=== PATIENT | male | born 1945 | race Caucasian/White ===

== ENCOUNTER → 2016-07-23 | Outpatient (CLI) | payer OTHER | PROVIDERS: ATTEND Physician Assistant | DX: R13.10 Dysphagia, unspecified (principal) | CPT/HCPCS: 74230; 92611; G8996; G8997; G8998 ==

== ENCOUNTER 2018-05-06 12:17 | Observation (INO) | payer OTHER ==
[2018-05-06] MEDS ORDERED: ACETAMINOPHEN 325 MG TAB PO PRN (14:30)
[2018-05-06] MEDS ORDERED: ZOLPIDEM TARTRATE 5 MG TAB PO PRN (19:52)
[2018-05-06 20:03] LABS: PLATELET COUNT 145 10^3/uL (150-400)
--- NOTE | 2018-05-06 20:18 | GHP ---
[f rep st] HISTORY AND PHYSICAL DATE OF ADMISSION: 05/06/2018 CHIEF COMPLAINT: Dyspnea on exertion. HISTORY OF PRESENT ILLNESS: This is a 72-year-old male, who is followed by Dr. Rosen due to bradycardia and 1st degree AV block. About a month ago, he noticed that he was having irregular heart beats while working out. At that time, he felt like he almost was going to pass out. Over the past 4 weeks, he has had increased episodes of palpitations. Then over the past 3 days, he has noticed some dyspnea on exertion. He denies any chest pain. He denies any swelling of his legs. He denies any orthopnea. PAST MEDICAL HISTORY: CABG in 2016, melanoma excision in 2003, A retinal tear, cataract surgery, TURP for BPH, left biceps tendon repair. HOME MEDICATIONS: Lipitor, zolpidem, aspirin, and Maxzide. ALLERGIES: Penicillin. SOCIAL HISTORY: Lives in [place] with his . He is a former smoker. He denies any alcohol use. He denies any illicit drug use. FAMILY HISTORY: Significant for heart disease in his father, brother, and grandparents. REVIEW OF SYSTEMS: Comprehensive 10-point review of systems was done and is negative, except for as mentioned in HPI. PHYSICAL EXAM: VITAL SIGNS: Blood pressure 146/87, pulse 63, respiratory rate 16, O2 saturation 97% on room air. Temperature 36.8. GENERAL: No acute distress. HEAD: Normocephalic, atraumatic. EYES: PERRLA. Sclerae anicteric. MOUTH: Moist mucous membranes. NECK: Supple. No lymphadenopathy. CARDIOVASCULAR: Bradycardic, S1-S2, no JVD. No lower extremity edema. PULMONARY: Lungs are clear. No wheezes, rales, or rhonchi. ABDOMEN: Soft, nontender, nondistended. No guarding or rebound tenderness. Normoactive bowel sounds. EXTREMITIES: No clubbing or cyanosis. NEURO: Cranial nerves 2-12 grossly intact. No focal motor or sensory deficits. SKIN: Clear. No rashes. DIAGNOSTICS: Troponin was 0.015. TSH within normal limits. Sodium 138, potassium 4.1, chloride 102, CO2 27, BUN 31, creatinine 1.1, glucose 102. WBC 7.1, hemoglobin 16.9, hematocrit 49.9, platelets 145. EKG that was done in the ER, per report, showed a third-degree AV block. Currently in a junctional rhythm on the ekg monitor. ASSESSMENT AND PLAN: Symptomatic bradycardia PLAN: The patient will be placed on observation in the PCU. Cardiology has been consulted and will see the patient. We will obtain an echocardiogram and continue to monitor on telemetry. I suspect the patient will likely need pacemaker placement due to his symptomatic bradycardia. The patient requests to be full code status. /[id number]/MODL MTDD
[2018-05-06] MEDS ORDERED: ATORVASTATIN CALCIUM 10 MG TAB PO SCH (21:00)
[2018-05-06] MEDS ORDERED: ASPIRIN 81 MG CHEWABLE TAB PO SCH (21:00)
--- NOTE | 2018-05-07 08:49 | CPEKG ---
Test Reason : OPEN Blood Pressure : / mmHG Vent. Rate : 074 BPM Atrial Rate : 074 BPM P-R Int : 454 ms QRS Dur : 082 ms QT Int : 359 ms P-R-T Axes : 000 041 073 degrees QTc Int : 399 ms Sinus rhythm Prolonged RI interval Confirmed by Jimbo Rowe ([id number]) on 05/07/2018 8:48:47 AM Referred By: PHYSICIAN ED Confirmed By:Jimbo Rowe
[2018-05-07] MEDS ORDERED: MULTIVITAMINS 1 EACH TAB PO SCH (09:00)
[2018-05-07] MEDS ORDERED: OMEGA-3 FATTY ACIDS 1,000 MG CAP PO SCH (09:00)
[2018-05-07] MEDS ORDERED: PSYLLIUM METAMUCIL 1 PKT PO SCH (09:00)
[2018-05-07] MEDS ORDERED: ASCORBIC ACID 500 MG TAB PO SCH (09:00)
[2018-05-07] MEDS ORDERED: TRIAMTERENE/HCTZ 75/50 1 EACH TAB PO SCH (09:00)
[2018-05-07] MEDS ORDERED: GLUCOSAMINE SULF 500 MG CAP PO SCH (09:00)
[2018-05-07] MEDS ORDERED: Herbals/Supplements -Info Only PO SCH (09:00)
--- NOTE | 2018-05-07 10:16 | PDCARPN ---
Cardiology Progress Note Chief Complaint: 1st and 2nd degree AV block, dyspnea, fatigue, activity intolerance Assessment/Plan: Assessment: 1. 1st and 2nd degree AV block: Progressive dyspnea and activity intolerance over the past 1-2 weeks, somewhat better this morning. Yesterday's 12-lead EKG was reviewed with Dr. Rosen, which likely demonstrates NSR with a prolonged KS interval. Telemetry has been reviewed, which demonstrates junctional rhythm, 1st and slow 2nd degree AV block type I. 2. CAD: s/p CABG in 2016, negative troponin on admission 3. Hyperlipidemia Plan: 1. Outpatient nuclear imaging stress test to rule out ischemic etiology of symptoms. 2. If NucETT is normal, plan for PPM implant next week 3. If NucETT is abnormal, plan for coronary angiography +/- PPM implant 4. OK to DC home today once NucETT is scheduled at [facility] 05/07/18 12:20 Subjective: No issues overnight, dyspnea on exertion improved this morning Reviewed/Discussed With: multidisciplinary team Time Spent with Patient: greater than 25 minutes Time Spent with Patient: Greater than 25 minutes spent on this patients care, greater than 50% of time spent counseling, educating, and coordinating care regarding the above mentioned plan. Objective: Vital Signs (8 Hrs) Temp Pulse Resp BP Pulse Ox 05/07/18 08:00 36.7 C 60 18 128/76 H 92 05/07/18 04:00 36.3 C 44 L 16 128/74 H 97 Intake/Output (24 Hrs) 05/06/18 05/07/18 05/08/18 05:59 05:59 05:59 Intake Total 350 Balance 350 Intake: Oral (ml) 350 Other: Weight 77 kg Number of Voids Toilet 2 Result Diagrams: 05/06/18 12:17 05/07/18 03:30 EK-lead ECG yesterday demonstrates NSR with prolonged KS interval, reviewed with Dr. Rosen - Physical Exam Constitutional: WDWN, healthy appearing, no apparent distress Ears, Nose, Mouth, Throat: moist mucous membranes, no oral ulcers, no thrush Cardiovascular: regular rate and rhythm, no murmurs, no rubs, no gallops Respiratory: clear to auscultate bilat, no crackles, no wheezes Gastrointestinal: normoactive bowel sounds, no tenderness, no masses Neurologic: AAOx3, CN II-XII grossly intact Psychiatric: cooperative, interactive, following commands, not anxious ICD10 Worksheet Patient Problems: Problems Problem Status Onset CAD in [place] artery Acute Heart block AV second degree Acute Pneumonia Acute S/P CABG x 3 Acute Urinary retention with incomplete bladder emptying Acute Frequent PVCs Chronic Wenckebach second degree AV block Chronic
[2018-05-07 11:45] VITALS: BP 110/72
--- NOTE | 2018-05-07 12:46 | PDCONSULT ---
Residential Program Worker Note: Patient was seen in consult yesterday (with the EMR down) and a formal consult was written in the chart. The patient is well known to Dr. Glenny Rosen, and given this relationship, I discussed the patient with Dr. Rosen yesterday. Outpatient, there had been discussions about PPM implantation. With CAD/CABG history, the option for stress testing was brought up (as well as angiography), but, according to the patient, in recent history, an outpatient stress test had been performed (ETT only). Dr. Rosen and team formally saw the patient today, and outpatient Nuclear stress testing was arranged. Outpatient follow up with cardiology after this testing has been completed. I reiterated with the patient and , should there be revisitation of symptoms (or acute progression), would revisit the ER for work up/treatment. They were in agreement with these plans. Nikhil (SANDRO) did see the patient, and wrote a note prior to the completion of this note
--- NOTE | 2018-05-07 12:50 | GDS ---
[f rep st] DISCHARGE SUMMARY SUPERVISING STRUCTURAL STEEL IRONWORKER: Dr. Rell Rosen ADMISSION DIAGNOSES: 1. First- and second-degree atrioventricular block. 2. Coronary artery disease, status post coronary artery bypass graft in 2016. DISCHARGE DIAGNOSES: 1. First- and second-degree atrioventricular block. 2. Coronary artery disease, status post coronary artery bypass graft in 2016. PROCEDURES PERFORMED DURING HOSPITALIZATION: Electrocardiogram. HOSPITAL COURSE: Patient presented 05/06/2018 for further evaluation of progressive dyspnea on exertion and progressive activity intolerance over the previous 2 weeks. Telemetry since his admission has demonstrated 1st-degree AV block with a CA interval measuring roughly 440 msec, consistent with his baseline in addition to slow 2nd-degree AV block, type I, in addition to periods of junctional rhythm. The patient reports significant improvement in his symptoms since his admission. Laboratory studies demonstrated negative troponin and were otherwise unrevealing. He has been ambulating around the unit several times this morning without issue, and he is appropriate and stable for discharge home today. CURRENT PHYSICAL EXAMINATION: GENERAL: Alert and oriented x4, no apparent distress. VITAL SIGNS: Blood pressure 110/72, heart rate 59, respiratory rate 18, SpO2 98% on room air, temp 36.7 degrees Celsius. RESPIRATORY: Lungs are clear to auscultation without adventitious breath sounds. CARDIAC: Normal S1 and S2. No S3, S4, or murmurs. Rhythm is regular. ABDOMEN: Normoactive bowel sounds times all 4 quadrants. No masses or tenderness. Soft to palpation. SKIN: [place], warm, dry without cyanosis, clubbing, or peripheral edema. EXTREMITIES: Pulses 2+ bilaterally. LABORATORY STUDIES: Drawn 05/06/2018 demonstrate normal CBC and normal BMP. BNP is 151. TSH is 1.5. Troponin is 0.015. PROCEDURES: Electrocardiogram 05/06/2018 demonstrates normal sinus rhythm with a prolonged CA interval. DISCHARGE DISPOSITION: Patient will be discharged home in stable condition. He is not under any activity restrictions. DISCHARGE MEDICATIONS: Please see discharge medication reconciliation sheet for full details. Please note that patient has not been started on any new medications, and there have been no medication changes made during this hospitalization. DISCHARGE INSTRUCTIONS: The patient will have an outpatient nuclear imaging stress test at [facility] next week. If nuclear imaging stress testing is abnormal, he will have a subsequent coronary angiogram for further evaluation of coronary artery disease. If nuclear imaging stress testing is normal, we will proceed with implant of a permanent pacemaker next Friday, 05/13. We reviewed red flag symptoms, and patient will return to the emergency department if he experiences any chest discomfort, syncope, acute dyspnea, or other concerning symptoms. At the time of discharge, the patient verbalizes understanding regarding all discharge instructions without questions or concerns. He will proceed with nuclear imaging stress testing and planned implantation of a permanent pacemaker next week. Time spent on discharge greater than 30 minutes. /[id number]/MODL MTDD
--- NOTE | 2018-05-07 13:01 | ASDISCHSUM ---
Discharge Information Plan Status:Home with No Needs Medically Cleared to Leave:05/07/2018 Discharge Date:05/07/2018 12:17 PM CM D/C Disposition:Home, Routine, Self-Care ADT D/C Disposition:Home, Routine, Self-Care Projected Discharge Date:05/07/2018 12:17 PM Transportation at D/C: Discharge Delay Reason: Follow-Up Date:05/07/2018 12:17 PM Discharge Slot: Final Diagnosis: Placement Information Patient Contact Information Contact Name:JAMAALPARMINDERCODY Relationship: Address:[address] [place] Work Phone: City:[place] Phone: State/Zip Code:[place] [address] Email: Financial Information Financial Class:Medicare Advantage Plans Primary Plan Desc:[facility] ADVANTAGE PLANS Primary Plan Number:[id number] Secondary Plan Desc: Secondary Plan Number: Assessment Information LACE LACE Length of stay for Answers: Less than 1 day current admission Acuity / Level of Answers: No Care: Did the patient have an inpatient admission? Comorbidities - select Answers: Opioid dependence all that apply / Chronic pain Other Notes: CABG # of Emergency department Answers: 1-2 visits in the last 6 months Score: 6 Date Signed: 05/07/2018 01:00 PM Electronically Signed By:Dolores Yanez RN Intervention Information
--- NOTE | 2018-05-13 12:04 | ECHO ---
[email or web address] [address] Main: [phone] Echocardiography Examination Transthoracic Name: EBER GUTIERREZ MR#: [id number] Study Date: 05/06/2018 Study Time: 03:59 PM Date of : 1945 Age: 72 year(s) Height: 177.8 cm (70 in.) Weight: 77.11 kg (170 lb.) BSA: 1.95 m2 Gender: Male Examination: Echo Contrast: Image Quality: Adequate Rhythm: Heart Rate: BP: 138 mmHg/87 mmHg Indication: Cardiac: syncope Procedure Staff Referring Physician: Target Aircraft Technician: Kate Jones [facility] Reading Physician: Yannick Kapoor MD Requesting Provider: Indication: Cardiac: syncope Measurements Chambers AV/MV Label Value Normal Value Label Value Normal Value IVSd, 2D 1.2 cm (0.6cm - 1.1cm) AV PGmax 7 mmHg LVDd, 2D 3.3 cm (4.2cm - 5.9cm) AV Vmax, Caliper 1.35 m/s LVDs, 2D 2 cm (2.1cm - 4cm) JULIAN (continuity eq. 2.7 cm2 LVEF, 2D 70 % (54% - 74%) Vmax) LVEF, BP 76 % (55% - 70%) MV A Vmax 0.84 m/s LVEF, MOD2 79 % (55% - 70%) MV DT 158 ms LVEF, MOD4 73 % (55% - 70%) MV E Vmax 0.76 m/s LVOT PGmax 3 mmHg MV E/A 0.9 LVOT Vmax 0.87 m/s (0.7m/s - 1.1m/s) TV/PV LVOTd 2.3 cm (1.9cm - 2.1cm) Label Value Normal Value LVPWd, 2D 0.8 cm (0.6cm - 1cm) RA Pressure 5 mmHg RVDd, 2D 4.1 cm (1.9cm - 3.8cm) RVSP 55 mmHg TAPSE 1.5 cm TR Pmax 50 mmHg LADs, 2D 3.6 cm (3cm - 4cm) TR Vmax 3.53 m/s LAESV index, MOD4 24.6 ml/m2 RA Area 23.6 cm2 Additional Vessels Label Value Normal Value AoRoot, 2D 3.5 cm (1.4cm - 2.6cm) IVC 1.9 cm (1.2cm - 2.3cm) Patient: EBER GUTIERREZ Study Date: 05/06/2018 Page 1 of 3 03:59 PM Conclusions (1) Left ventricular systolic ejection fraction was normal (>70%) - mild LVH (2) Mild dilation to the RV with mild reduction in systolic function (3) Normal LA with mild dilaiton of the RA (4) Mild mitral regurgitation (5) Trileaflet aortic valve (6) Mild tricuspid regugitation - RVSP was 55 mm Hg (7) Trivial PI (8) No pericardial effusion Findings Left Ventricle: Left ventricle is normal in size. Normal global systolic left ventricular function. The ejection fraction, measured by Simpsons method, is 76 %. There is mild concentric left ventricular hypertrophy. Unable to assess Diastolic Dysfunction due to atrial fibrillation/a flutter. Right Ventricle: Mildly dilated right ventricle. Right ventricular systolic function is mildly reduced. Left Atrium: The left atrium is normal in size. Right Atrium: Right atrial enlargement. Mitral Valve: Mitral valve appears structurally normal. Mild mitral regurgitation. Aortic Valve: Aortic leaflets are structurally normal. No significant aortic valve regurgitation. There is no aortic stenosis. There is aortic sclerosis present. Tricuspid Valve: Tricuspid valve leaflets are structurally normal. Mild tricuspid regurgitation. Right Ventricular systolic pressure is measured at 55 mmHg. Pulmonary artery pressure moderately increased. Pulmonic Valve: Pulmonic leaflets are structurally normal. Trivial pulmonic valve regurgitation is present. Aorta: The aortic root size in 2D measures 3.5 cm. Aorta Measurements AoRoot, 2D is 3.5 cm. IVC: The inferior vena cava is normal in size. Pericardium: No pericardial effusion. Exam Details Procedure Ordered: Echo Procedure Status: Routine study Image Quality: Adequate Facility Location: Cardiac Echo 1 (No Signature Object) Patient: EBER GUTIERREZ Study Date: 05/06/2018 Page 2 of 3 03:59 PM Patient: EBER GUTIERREZ Study Date: 05/06/2018 Page 3 of 3 03:59 PM [id number]
== END 2018-05-07 12:17 | disposition home or self-care (01) ==
LOC: F2W 14:10
PROVIDERS: ADMIT Family Medicine; ATTEND Family Medicine
DX: I44.0 Atrioventricular block, first degree (principal); I44.1 Atrioventricular block, second degree; I25.10 Atherosclerotic heart disease of native coronary artery without angina pectoris; Z95.1 Presence of aortocoronary bypass graft
CPT/HCPCS: 71045; 93005; 93306; 99285; G0378

== ENCOUNTER 2018-05-13 08:35 | Observation (INO) | payer OTHER ==
[2018-05-13] MEDS ORDERED: BACITRACIN IRRIGATION/NS 50,000 UNITS/1,000 ML BTL IRR ONE (08:37)
[2018-05-13] MEDS ORDERED: ceFAZolin 2 GM/DEXTROSE 100 ML IV ONE (08:37)
[2018-05-13] MEDS ORDERED: DIAZEPAM 5 MG TAB PO ONE (08:37)
[2018-05-13] MEDS ORDERED: diphenhydrAMINE 25 MG CAP PO ONE (08:37)
[2018-05-13] MEDS ORDERED: NS 1,000 ML IV ONE (08:37)
[2018-05-13] MEDS ORDERED: LIDOCAINE 1% 300 MG/30 ML SDV ONE (08:45)
[2018-05-13] MEDS ORDERED: IOPAMIDOL (ISOVUE-300) 100 ML BTL ONE (08:45)
[2018-05-13] MEDS ORDERED: BUPIVACAINE 0.75% 10 ML SDV ONE (08:45)
--- NOTE | 2018-05-13 08:51 | PDANEPAE ---
ANE Past Medical History - Cardiovascular History Hx Hypertension: Yes Hx Arrhythmias: Yes Hx Chest Pain: No Hx Coronary Artery / Peripheral Vascular Disease: Yes Hx CHF / Valvular Disease: No Hx Palpitations: Yes Cardiovascular History Comment: ANGIOGRAM 06/15/2015 - Pulmonary History Hx COPD: No Hx Asthma/Reactive Airway Disease: No Hx Recent Upper Respiratory Infection: No Hx Oxygen in Use at Home: Yes Hx Sleep Apnea: Yes - Neurologic History Hx Cerebrovascular Accident: No Hx Seizures: No Hx Dementia: No - Endocrine History Hx Diabetes: No - Renal History Hx Renal Disorders: No Renal History Comment: TURP - Liver History Hx Hepatic Disorders: No - Neurological & Psychiatric Hx Hx Neurological and Psychiatric Disorders: No - Cancer History Hx Cancer: Yes Cancer History Comment: MELANOMA L ARM - Congenital Disorder History Hx Congenital Disorders: No - GI History Hx Gastrointestinal Disorders: Yes Gastrointestinal History Comment: ACID REFLUX OCCAS - Other Health History Other Health History: NEG - Chronic Pain History Chronic Pain: Yes (low back) - Surgical History Prior Surgeries: ANGIOGRAM - 06/15/2015. TURP. MELANOMA L ARM. OLEG ANKLE SURGERY. ELBOW L ARM ANE Review of Systems Review of Systems: ANE Patient History - Allergies Allergies/Adverse Reactions: Penicillins Allergy (Verified 06/15/15 07:08) - Home Medications Home Medications: Ascorbic Acid [Vitamin C 500 mg (*)] 1,000 mg PO DAILY 06/21/15 [Last Taken ] Aspirin [Aspirin 81mg (*)] 81 mg PO HS 06/21/15 [Last Taken 05/05/18] Atorvastatin Calcium [Lipitor 10 mg (*)] 10 mg PO HS 06/21/15 [Last Taken ] Glucosamine Sulfate [Glucosamine Sulfate 500 MG (*)] 1,500 mg PO DAILY 06/21/15 [Last Taken 05/06/18] Multivitamins [Multivitamin (*)] 1 each PO DAILY 06/21/15 [Last Taken 05/06/18] [place]-3 Fatty Acids [Fish Oil 1000 mg (*)] 2,000 mg PO DAILY 06/21/15 [Last Taken 05/06/18] Triamterene/Hydrochlorothiazid [Triamterene-Hctz 75-50 mg Tab] 1 each PO DAILY 06/21/15 [Last Taken 05/06/18] Zolpidem Tartrate [Ambien 5MG (*)] 2.5 mg PO HS PRN 06/21/15 [Last Taken ] Herbals/Supplements -Info Only 1 ea PO DAILY 05/06/18 [Last Taken 05/06/18] - Smoking Hx Smoking Status: Former smoker - Family Anes Hx Family Hx Anesthesia Complications: NEG ANE Physical Exam - Airway Neck exam: FROM Mallampati Score: Class 2 Mouth exam: normal dental/mouth exam - Pulmonary Pulmonary: no respiratory distress - Cardiovascular Cardiovascular: regular rate and rhythym - ASA Status ASA Status: III ANE Anesthesia Plan Anesthesia Plan: GA w LMA
[2018-05-13] MEDS ORDERED: PROPOFOL 200 MG/20 ML VIAL ONE (09:14)
[2018-05-13] MEDS ORDERED: fentaNYL 100 MCG/2 ML INJ ONE (09:14)
[2018-05-13] MEDS ORDERED: LIDOCAINE 2% 100 MG/5 ML SYR ONE (09:15)
[2018-05-13] MEDS ORDERED: ONDANSETRON 4 MG/2 ML VIAL ONE (09:17)
[2018-05-13 09:25] LABS: PLATELET COUNT 127 10^3/uL (150-400)
--- NOTE | 2018-05-13 09:30 | PDGENHP ---
History & Physical Chief Complaint: Symptomatic AV block History of Present Illness: Symptomatic 2nd degree AV block, normal NucETT yesterday Relevant Physical Exam: General: A&Ox4, no apparent distress. Respiratory: CTA. Cardiac: Regular rate and rhythm, S1, S2 Cardiorespiratory Assessment: Proceed with implant of dual chamber PPM today
[2018-05-13 09:36] LABS: INR 1.02 (0.83-1.16)
[2018-05-13] MEDS ORDERED: PHENYLEPHRINE HCL 100 MCG/ML SYR ONE (10:05)
[2018-05-13] MEDS ORDERED: ACETAMINOPHEN 500 MG TAB PO PRN (11:09)
[2018-05-13] MEDS ORDERED: ALBUTEROL 3 ML DEYVIAL IH PRN (11:09)
[2018-05-13] MEDS ORDERED: NALOXONE HCL 0.4 MG/ML INJ IVP PRN (11:09)
[2018-05-13] MEDS ORDERED: ONDANSETRON 4 MG/2 ML VIAL IVP PRN (11:09)
--- NOTE | 2018-05-13 11:10 | POSTANESTH ---
Post Anesthetic Evaluation Cardiovascular Status: Similar to Pre-Op Cond Respiratory Status: Similar to Pre-op Cond. Level of Consciousness/Mental Status: Alert and Oriented Pain Control: Adequate, Prn Tx Ordered Nausea/Vomiting Control: Adequate, Prn Tx Ordered Complications Possibly Related to Anesthesia: None Noted
--- NOTE | 2018-05-13 11:22 | CPEKG ---
Test Reason : OPEN Blood Pressure : / mmHG Vent. Rate : 059 BPM Atrial Rate : 058 BPM P-R Int : 440 ms QRS Dur : 094 ms QT Int : 414 ms P-R-T Axes : 000 027 062 degrees QTc Int : 411 ms Sinus rhythm Prolonged NV interval Confirmed by Ede Centeno ([id number]) on 05/13/2018 11:22:30 AM Referred By: Rell Rosen Confirmed By:Ede Centeno
[2018-05-13] MEDS ORDERED: ACETAMINOPHEN 325 MG TAB PO PRN ×2 (17:23→17:29)
[2018-05-13] MEDS ORDERED: ZOLPIDEM TARTRATE 5 MG TAB PO PRN (17:23)
[2018-05-13] MEDS ORDERED: ASPIRIN 81 MG CHEWABLE TAB PO SCH (21:00)
[2018-05-13] MEDS ORDERED: ATORVASTATIN CALCIUM 10 MG TAB PO SCH (21:00)
[2018-05-14 04:52] LABS: PLATELET COUNT 112 10^3/uL (150-400)
[2018-05-14 07:47] VITALS: BP 152/87
[2018-05-14] MEDS ORDERED: TRIAMTERENE/HCTZ 75/50 1 EACH TAB PO SCH (09:00)
[2018-05-14] MEDS ORDERED: GLUCOSAMINE SULF 500 MG CAP PO SCH (09:00)
[2018-05-14] MEDS ORDERED: PSYLLIUM METAMUCIL 1 PKT PO SCH (09:00)
[2018-05-14] MEDS ORDERED: OMEGA-3 FATTY ACIDS 1,000 MG CAP PO SCH (09:00)
[2018-05-14] MEDS ORDERED: MULTIVITAMINS 1 EACH TAB PO SCH (09:00)
--- NOTE | 2018-05-14 09:53 | GDS ---
[f rep st] DISCHARGE SUMMARY SUPERVISING SEWING MACHINES SALESPERSON: Rell Rosen MD. ADMISSION DIAGNOSES: Symptomatic second-degree atrioventricular block. DISCHARGE DIAGNOSES: Status post implant of dual-chamber permanent pacemaker. PROCEDURES PERFORMED DURING HOSPITALIZATION: 1. Electrocardiogram. 2. Chest x-ray. 3. Implant of dual-chamber permanent pacemaker. HOSPITAL COURSE: Patient presented 05/13/2018, for implant of a dual-chamber permanent pacemaker in the setting of symptomatic episodes of second-degree AV block and [id number] activity intoleran ce. He had a normal nuclear imaging stress test on 05/12/2018 and underwent successful implant of a dual-chamber permanent pacemaker with Dr. Rell Rosen yesterday without any intraprocedural complicati ons. He has done very well in the postprocedure setting and has been ambulating around the unit this morning without issue. He is appropriate and stable for discharge home today. CURRENT PHYSICAL EXAMINATION: GENERAL: Alert and oriented x4. No apparent distress. VITAL SIGNS: Blood pressure 127/68, heart rate 60, respiratory rate 12, SpO2 99% on room air. Temp 36.7 degrees Celsius. RESPIRATORY: Lungs are clear to auscultation without adventitious breath sounds. CARDIAC: Normal S1, S2. No S3 or S4. Rhythm is regular. ABDOMEN: Normoactive bowel sounds times all 4 qu adrants. No masses or tenderness. Soft to palpation. SKIN: [place], warm, dry without cyanosis, club winnie, or peripheral edema. EXTREMITIES: Pulses 2+ bilaterally. No edema. LABORATORY STUDIES: Drawn today demonstrate stable CBC and BMP compared to preprocedure. PROCEDURES: Implant of dual-chamber permanent pacemaker as mentioned above. Chest x-ray this teagannin g demonstrates stable lead positioning. The device interrogation will be performed prior to discharg e home today. 12-lead EKG today demonstrates A-sensed, V-paced rhythm without new ST-T-wave or VT-in terval abnormalities. DISCHARGE DISPOSITION: Patient will be discharged home in stable condition. He is under activity re strictions as below. DISCHARGE MEDICATIONS: Please see discharge medication reconciliation sheet for full details. Jennifer emanuel note that there have been no medication changes made during this hospitalization. DISCHARGE INSTRUCTIONS: Post pacemaker discharge instructions reviewed with the patient in detail. 1. He will avoid lifting his left arm above the level of the shoulder, pushing, pulling, or lifting more than 5 pounds for the next 4 weeks. 2. He will use his sling at night for the next 4 weeks. 3. He will continue range of motion exercises below the level of the shoulder to prevent frozen shou lder. 4. He may drive 48 hours post procedure. 5. He will keep his incision clean and dry. He will not apply any powders, gels, or lotions to this site. 6. He will keep his left pectoral dressing clean, dry, and intact. If his dressing becomes saturate d for any reason, he will remove it and leave it open to air. 7. [place] will be removed in 1 week at a followup visit with our device clinic at [facility]. 8. He will follow up with Dr. Rosen in 1 month, sooner for any new or concerning symptoms. At the time of discharge, patient verbalized understanding regarding all discharge instructions witho ut questions or concerns. He has a followup visit with our device clinic in 1 week, and he will cont act us with any new issues or concerns prior to his upcoming visit. TIME SPENT ON DISCHARGE: Greater than 30 minutes. /[id number]/MODL
--- NOTE | 2018-05-14 12:18 | ASDISCHSUM ---
Discharge Information Plan Status:Home with No Needs Medically Cleared to Leave:05/14/2018 Discharge Date:05/14/2018 11:05 AM CM D/C Disposition:Home, Routine, Self-Care ADT D/C Disposition:Home, Routine, Self-Care Projected Discharge Date:05/14/2018 11:05 AM Transportation at D/C: Discharge Delay Reason: Follow-Up Date:05/14/2018 11:05 AM Discharge Slot: Final Diagnosis: Placement Information Patient Contact Information Contact Name:JAMAALPARMINDERCODY Relationship: Address:[address] [place] Work Phone: City:[place] Phone: State/Zip Code:[place] [address] Email: Financial Information Financial Class:Medicare Advantage Plans Primary Plan Desc:[facility] ADVANTAGE PLANS Primary Plan Number:[id number] Secondary Plan Desc: Secondary Plan Number: Assessment Information LACE LACE Length of stay for Answers: Less than 1 day current admission Acuity / Level of Answers: No Care: Did the patient have an inpatient admission? Comorbidities - select Answers: Coronary Artery Disease all that apply Opioid dependence / Chronic pain Other Notes: HTN # of Emergency department Answers: 1-2 visits in the last 6 months Score: 8 Date Signed: 05/14/2018 12:17 PM Electronically Signed By:Dolores Yanez RN Intervention Information
--- NOTE | 2018-05-15 06:29 | CPEKG ---
Test Reason : Post-pacemaker placement Blood Pressure : / mmHG Vent. Rate : 062 BPM Atrial Rate : 062 BPM P-R Int : 213 ms QRS Dur : 170 ms QT Int : 492 ms P-R-T Axes : 230 -71 090 degrees QTc Int : 500 ms Atrial-ventricular dual-paced rhythm Confirmed by Ede Centeno ([id number]) on 05/15/2018 6:28:59 AM Referred By: Rell Rosen Confirmed By:Ede Centeno
--- NOTE | 2018-05-15 06:42 | CPEKG ---
Test Reason : OPEN Blood Pressure : / mmHG Vent. Rate : 063 BPM Atrial Rate : 063 BPM P-R Int : 202 ms QRS Dur : 170 ms QT Int : 442 ms P-R-T Axes : 098 -86 084 degrees QTc Int : 453 ms Atrial-ventricular dual-paced rhythm Confirmed by Ede Centeno ([id number]) on 05/15/2018 6:42:04 AM Referred By: Rell Rosen Confirmed By:Ede Centeno
== END 2018-05-14 11:05 | disposition home or self-care (01) ==
LOC: FCATH 08:35 → F2W 10:55
PROVIDERS: ADMIT Internal Medicine Cardiovascular Disease; ATTEND Internal Medicine Cardiovascular Disease
DX: I44.1 Atrioventricular block, second degree (principal); Z85.820 Personal history of malignant melanoma of skin; I10 Essential (primary) hypertension; E78.5 Hyperlipidemia, unspecified; Z95.1 Presence of aortocoronary bypass graft; I25.10 Atherosclerotic heart disease of native coronary artery without angina pectoris; G47.33 Obstructive sleep apnea (adult) (pediatric)
CPT/HCPCS: 33208; 71045; 71046; 93005; C1785; C1898; G0378; J0690; J2001; J2370; J2405; J2704; J3010; Q9967

== ENCOUNTER → 2018-07-01 | Outpatient (CLI) | payer OTHER | LOC: FIMAGING 08:24 | PROVIDERS: ATTEND Internal Medicine Critical Care Medicine | DX: R06.00 Dyspnea, unspecified (principal); I27.20 Pulmonary hypertension, unspecified ==